=== PATIENT | male | born 1990 | race Asian ===

== ENCOUNTER 2020-08-30 08:58 | Emergency (ER) | payer OTHER ==
[~2020-08-30] VITALS: Ht 162.6 cm; Wt 75.0 kg
[2020-08-30] MEDS ORDERED: IBUPROFEN 600 MG TABLET PO ONE (09:30)
[2020-08-30] MEDS ORDERED: HydrOXYzine PAMOATE 50 MG CAPSULE PO ONE (09:30)
[2020-08-30 10:23] VITALS: BP 150/105
== END 2020-08-30 10:40 | disposition home or self-care (01) ==
LOC: EMS 08:58
DX: M79.671 Pain in right foot (principal); F41.9 Anxiety disorder, unspecified; R00.0 Tachycardia, unspecified; F17.210 Nicotine dependence, cigarettes, uncomplicated
CPT/HCPCS: 99283